=== PATIENT | female | born 1985 | race Two or more races ===

== ENCOUNTER 2024-07-02 09:10 | Day surgery (SDC) | payer MEDICAID, SELFPAY ==
--- NOTE | 2024-07-01 07:00 | EKG_ITS ---
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
[2024-07-01 08:44] VITALS: BMI 37.9
[2024-07-01 10:32] LABS: Basophils # (Auto) 0.1 Thou/mm3 (0.0-0.2); Basophils % (Auto) 1 % (0-2.5); Eosinophils # (Auto) 0.2 Thou/mm3 (0.0-0.5); Eosinophils % (Auto) 2 % (0-10); Hematocrit 36.5 % (36.0-46.0); Hemoglobin 12.3 g/dL (12.0-16.0); Immature Granulocytes % (Auto) 0 % (0-0); Immature Granulocytes Auto 0.02 Thou/mm3 (0.00-0.00); Lymphocytes # (Auto) 2.4 Thou/mm3 (1.0-4.8); Lymphocytes % (Auto) 25 % (10-50); Mean Corpuscular HGB Conc 33.7 g/dl (31.0-37.0); Mean Corpuscular Hemoglobin 28.7 pg (25.0-35.0); Mean Corpuscular Volume 85 fL (80-100); Monocytes # (Auto) 0.6 Thou/mm3 (0.0-0.8); Monocytes % (Auto) 7 % (0-12); Neutrophils # (Auto) 6.3 Thou/mm3 (1.8-7.7); Neutrophils % (Auto) 66 % (37-80); Nucleated Red Blood Cell % 0 /100 WBC (0); Platelet Count 287 Thou/mm3 (140-440); RDW Standard Deviation 42.2 fL (36.4-46.3); Red Blood Count 4.29 Miln/mm3 (4.00-5.20); White Blood Count 9.6 Thou/mm3 (3.6-11.0)
[2024-07-01 10:40] LABS: Partial Thromboplastin Time 27.4 Seconds (22.0-36.0); Prothrombin Time 10.7 Seconds (9.0-12.2)
[2024-07-01 10:44] LABS: Anion Gap 8 (7-16); BUN/Creatinine Ratio 18 Ratio (12-20); Blood Urea Nitrogen 11 mg/dL (9-23); Calcium 9.7 mg/dL (8.3-10.6); Carbon Dioxide 26.9 mMol/L (20.0-31.0); Chloride 103 mMol/L (98-107); Creatinine (Component) 0.6 mg/dL (0.6-1.3); Estimated Creatinine Clearance 143.5 mL/min (>60); Glucose 105 mg/dL (74-106); Osmolality,Calculated 275 (275-295); Potassium 4.3 mMol/L (3.4-5.1); Sodium 138 mMol/L (136-145); eGFR > 60 See Note
[2024-07-01 10:48] LABS: HCG,Qualitative Serum Negative
[2024-07-02] VITALS (8 sets, daily range): BP systolic 105–125; BP diastolic 59–78; PULSE 71–93; RESP 12–21; TEMP 36.3–36.9; O2SAT 95–99; BMI 37.9
[2024-07-02] MEDS: RINGERS LACTATED 1000 ML 1,000 ML 20 ML IV (10:14)
--- NOTE | 2024-07-02 12:59 | PD.SUROPNT ---
Date of Procedure 07/02/24 Pre Op Diagnosis Symptomatic varicose veins right lower extremity Post Op Diagnosis Same as preop diagnosis Procedure Radiofrequency ablation of the greater saphenous vein right lower extremity Varicose vein excisions right lower extremity through 27 separate incisions Findings Successful closure of the greater saphenous vein with no evidence of thrombus in the saphenofemoral junction or common femoral vein All marked veins were successfully removed or disrupted Procedure Description With the patient standing in the preop area all varicose veins to be removed were carefully marked with a sharpie pen. The patient was then brought to the operating room and the right lower extremity sterilely prepped and draped. A timeout was performed. The radiofrequency ablation was performed first by mapping out the course of the greater saphenous vein between the knee and the saphenofemoral junction on the medial thigh. Ultrasound was used to identify the saphenous vein just above the knee and a small skin channing was made. A 21-gauge mini stick needle was then used to access the vein under direct ultrasound guidance. A mini stick wire was placed followed by a 7 Turkmen sheath introducer. The ablation catheter was then brought to the field prepped and placed into the patient with the tip carefully positioned 3 to 5 cm distal to the saphenofemoral junction. Tumescent anesthesia was then instilled in the subcutaneous tissues surrounding the vein over the treatment length. Catheter tip position was once again ensured to be 3 to 5 cm distal to the junction then under direct ultrasound compression the catheter was activated with 2 cycles proximally and 2 additional cycles down the leg. The saphenofemoral junction was then inspected and found to be free of thrombus with good compressibility and augmentation and no evidence of thrombus in the junction or the common femoral vein. At this point the varicose vein excision procedure was performed by making a small skin channing in the previously marked areas then bluntly enlarging the incision with a mosquito clamp and grasping and excising the veins. After all veins were either removed or disrupted hemostasis was obtained as needed, the leg was cleaned and then dried and Steri-Strips were applied to the incisions. The leg was then wrapped with gauze Kerlix and an Max wrap. The patient woke up from anesthesia was moved to recovery in stable condition Anesthesia other (Laryngeal mask anesthesia) Implants None Pathology / specimen Other (Varicose veins right lower extremity) Estimated Blood Loss 75 Condition Stable Disposition PACU Surgeon Matt Trevino MD Surgical Staff Operation Date: 07/02/24 11:30 Case Staff Anesthesiologist: Collins Anguiano RN First Assistant: Ayleen Booth
--- NOTE | 2024-07-02 13:14 | SUR.PHASEI ---
pt received from OR in recovery bay 1. pt asleep but responds to voice, breathing unlabored on 8l oxymask. v/s stable. pt dressing to right lower extremity cdi. report received from Davis Breaux and Dr. Anguiano.
--- NOTE | 2024-07-02 13:52 | SUR.PHASEII ---
pt able to tolerate oral fluids without difficulty swallowing or nausea/vomiting.
--- NOTE | 2024-07-02 14:33 | SUR.PHASEII ---
pt awake and alert, breathing unlabored on room air. v/s stable. pt dressing right lower extremity cdi. pt able to ambulate to wheelchair with steady gait. pt dressing inspected after ambulating no blood noted. d/c instructions given with in room using japanese interpreter [id number], all questions answered. pt d/c via wheelchair with all belongings.
== END 2024-07-02 14:33 | disposition home or self-care (01) ==
PROVIDERS: Anesthesiology; PCP Family Medicine; Referring Provider Surgery Vascular Surgery; Visit Provider Surgery Vascular Surgery
PROC: (CPT 36475; principal; 2024-07-02 11:15)
DX: I83.811 Varicose veins of right lower extremity with pain (principal); Z01.810 Encounter for preprocedural cardiovascular examination
CPT/HCPCS: 36475; 36415; 80048; 84703; 85025; 85610; 85730; 93005; A4217; C1894; J0690; J1100; J1885; J2250; J2405; J2704; J3010; J3490; J7050; J7120

== ENCOUNTER → 2024-09-11 | Outpatient (CLI) | payer MEDICAID, SELFPAY ==
--- NOTE | 2024-09-11 08:00 | XR_ITS ---
Examination: Breast ultrasound complete, bilateral Date and time of exam: September 11, 2024 0802 hours INDICATIONS: Bilateral breast pain and burning sensation beginning one month ago Technique: Real-time grayscale ultrasonographic imaging bilateral breasts, including all 4 quadrants as well as nipple retroareolar and axillary regions. Findings: Sonographic images right breast 7:00 cyst 5 x 6 mm No solid nodules Sonographic images left breast No solid nodules IMPRESSION: BI-RADS Category 2: Benign findings
--- NOTE | 2024-09-11 09:00 | XR_ITS ---
Examination: Diagnostic digital mammography, bilateral Computer aided detection 3-D breast Tomosynthesis, bilateral Date and time of exam: September 03, 2024 0818 hours INDICATIONS: Bilateral breast pain and burning sensation in the breasts one month Technique: Nonmagnified MLO, CC views of the breasts to been obtained, reconstructed from 3-D Tomosynthesis images. R2 computer aided detection program utilized for evaluation of suspicious masses and/or abnormal calcifications. 3-D Tomosynthesis images obtained. Findings: The breasts are heterogeneously dense, which may obscure small masses 18 mm focal asymmetry upper left breast MLO view, anterior depth, 6.2 cm from the nipple Impression: BI-RADS Category 0: Incomplete: Need additional imaging evaluation 18 mm focal asymmetry upper left breast MLO view 6.2 cm from the nipple Recommend follow-up spot tomographic views upper outer quadrant left breast anterior depth to complete the workup.
== END | disposition home or self-care (01) ==
LOC: CDIM 07:49
PROVIDERS: PCP Family Medicine; Referring Provider Physician Assistant; Visit Provider Physician Assistant
DX: R92.8 Other abnormal and inconclusive findings on diagnostic imaging of breast (principal); N64.89 Other specified disorders of breast
CPT/HCPCS: 76641; 77062; 77066; G0279

== ENCOUNTER → 2024-10-19 | Outpatient (CLI) | payer MEDICAID, SELFPAY ==
--- NOTE | 2024-10-19 10:30 | XR_ITS ---
Examination: Diagnostic digital mammography, unilateral, left Computer aided detection 3-D breast Tomosynthesis, unilateral Date and time of exam: October 202024 1025 hours INDICATIONS: Mammogram September 11, 2024 18 mm focal asymmetry upper left breast MLO view, 6.2 cm from the nipple Technique: Nonmagnified MLO, CC views of the left breast have been obtained, reconstructed from 3-D Tomosynthesis images. R2 computer aided detection program utilized for evaluation of suspicious masses and/or abnormal calcifications. 3-D Tomosynthesis images obtained. Findings: The breast is heterogeneously dense, which may obscure small masses No suspicious mass is depicted on the follow-up spot compression views Impression: BI-RADS category 2: Benign findings Recommend yearly follow-up mammography
== END | disposition home or self-care (01) ==
LOC: CDIM 10:14
PROVIDERS: Referring Provider Physician Assistant; Visit Provider Physician Assistant
DX: R92.322 Mammographic fibroglandular density, left breast (principal); N64.89 Other specified disorders of breast
CPT/HCPCS: 77061; 77065; G0279